=== PATIENT | female | born 1990 | race American Indian/Alaskan Native ===

== ENCOUNTER 2019-09-18 06:37 | Emergency (ER) | payer SELFPAY ==
[2019-09-18] MEDS ORDERED: KETOROLAC 60 MG/2 ML INJ IM ONE (09:16)
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
[2019-09-18 11:40] LABS: HCG Qualitative,Urine Negative (Negative)
[2019-09-18 11:45] LABS: Amphetamine Screen,Urine PRESUMPTIVE NEGATIVE; Benzodiazepines Screen,Urine PRESUMPTIVE NEGATIVE; Cannabinoid Screen,Urine PRESUMPTIVE NEGATIVE; Cocaine Screen,Urine PRESUMPTIVE NEGATIVE; Methadone Screen,Urine PRESUMPTIVE NEGATIVE; Opiate Screen,Urine PRESUMPTIVE NEGATIVE
[2019-09-18] MEDS ORDERED: traMADol 50 MG TAB PO ONE (12:04)
[2019-09-18 12:25] VITALS: BP 98/54
== END 2019-09-18 12:25 | disposition home or self-care (01) ==
LOC: ED 06:37
DX: S01.511A Laceration without foreign body of lip, initial encounter (principal); S06.2X9A Diffuse traumatic brain injury with loss of consciousness of unspecified duration, initial encounter; S00.83XA Contusion of other part of head, initial encounter; S09.90XA Unspecified injury of head, initial encounter; Z79.899 Other long term (current) drug therapy; Y08.89XA Assault by other specified means, initial encounter; Y93.89 Activity, other specified; Y92.89 Other specified places as the place of occurrence of the external cause; Y99.8 Other external cause status
CPT/HCPCS: 36415; 70450; 70486; 80307; 81025; 96372; 99284; J1885; 80320; G0480